=== PATIENT | female | born 1955 | race Caucasian/White ===

== ENCOUNTER 2023-03-21 06:19 | Day surgery (SDC) | payer MEDICARE, MEDICAID ==
[~2023-03-21] VITALS: Ht 149.9 cm; Wt 81.6 kg
[2023-03-21] MEDS ORDERED: PROPOFOL 200MG/ 20ML VIAL (DIPRIVAN) IV ONE (07:15)
[2023-03-21] MEDS ORDERED: NS 1000 ML IV.SOLN IV ONE (07:15)
[2023-03-21] MEDS ORDERED: LIDOCAINE 2%, 20 ML MDV ONE (07:15)
[2023-03-21 08:05] VITALS: BP_SYST 117
== END 2023-03-21 09:00 | disposition home or self-care (01) ==
LOC: SDS 06:19 → SMU 06:19 → SDS 09:00
PROVIDERS: ATTEND Internal Medicine Gastroenterology
DX: R13.10 Dysphagia, unspecified (principal); K22.2 Esophageal obstruction; K44.9 Diaphragmatic hernia without obstruction or gangrene; K29.70 Gastritis, unspecified, without bleeding; I10 Essential (primary) hypertension; E66.9 Obesity, unspecified; K21.9 Gastro-esophageal reflux disease without esophagitis; F17.210 Nicotine dependence, cigarettes, uncomplicated; Z68.37 Body mass index [BMI] 37.0-37.9, adult; Z85.038 Personal history of other malignant neoplasm of large intestine; Z79.899 Other long term (current) drug therapy
CPT/HCPCS: 43249; 87081; 93005; 71045; G0378; J2001; J2704; J7030; C1769